=== PATIENT | male | born 1960 | race Caucasian/White ===

== ENCOUNTER 2019-11-18 08:42 | Outpatient (CLI) | payer BC, SELFPAY ==
--- NOTE | ~2019-11-18 | US_ITS ---
EXAMINATION: US abdomen limited EXAM DATE: 11/18/2019 09:15 INDICATION: Thrombocytopenia. TECHNIQUE: Multiple grayscale and Doppler images of the abdomen right upper quadrant were obtained (b y a technologist who performed the scan) and subsequently reviewed. Correlation is made to abdominal ultrasound 02/17/2013. FINDINGS: The pancreatic head and body are normal in appearance. The pancreatic tail is not visualized. The l iver has normal echogenicity and contour. There are no focal liver lesions identified. There is no evidence of intrahepatic biliary duct dilation. Portal venous flow was seen in the hepatopedal, nor mal direction and has normal Doppler waveform. No right-sided hydronephrosis. Common bile duct measures 5 mm, which is normal. The gallbladder fossa is unremarkable. Spleen measu res 11.3 cm, is morphologically normal. IMPRESSION: 1. Normal spleen size. Reviewed, dictated and finalized at location A. ARINE CHURN OPERATOR IMPRESSION: 1. Normal spleen size.
== END 2019-11-18 08:43 | disposition home or self-care (01) ==
LOC: CHSIMG 08:44
PROVIDERS: PCP Internal Medicine; Visit Provider Internal Medicine Hematology & Oncology
DX: D69.6 Thrombocytopenia, unspecified (principal)
CPT/HCPCS: 76705

== ENCOUNTER 2022-05-28 00:36 | Day surgery (SDC) | payer BC, SELFPAY ==
[2022-05-14 09:36] VITALS: BMI 21.5
--- NOTE | 2022-05-28 08:11 | P.PNAN_ITS ---
Anes - Initial Pre Proc Eval Procedure: Operation Date: 05/28/22 09:30 Proposed Procedures p Screening Colonoscopy - Malik Casey MD Date/Time: 05/28/22 08:11 Surgeon: Malik Casey MD Pre Op Diagnosis: hx of colon polyps Patient Data Age: 62 Gender: M Height: 1.85 m Weight: 74 kg Allergies Allergy/AdvReac Type Severity Reaction Status Date / Time meperidine Allergy Severe ITCHING;VOMITTING; Verified 05/28/22 08:41 TEMP RISES Home Medications Medication Instructions Recorded Confirmed Type atorvastatin 10 mg tablet 10 mg PO DAILY 05/14/22 05/14/22 History carvedilol 3.125 mg tablet 3.125 mg PO DAILY 05/14/22 05/14/22 History Patient hx anesthesia problems: none Family hx anesthesia problems: none Results Review: All pre-operative results and documents have been reviewed as part of the pre- operative evaluation. [facility] Past Medical History Medical History (Updated 05/28/22 @ 09:06 by Malik Casey MD) CAD (coronary artery disease) History of heart attack Hyperlipidemia Surgical History Surgical History (Updated 05/25/22 @ 14:43 by Marko Olivares DO) History of cholecystectomy Social History Social History Smoking status: Never smoker Alcohol intake: never Substance use: never Substance use type: does not use Living arrangements: with family Spiritual care concerns: No Anes - Eval Final PreProcedure Day of Procedure 05/28/22 08:11 Patient weight: normal Heart: regular rate and rhythm Lungs: clear to auscultation and normal air movement Airway: Mallampati scale class II Neurological: alert and oriented Last oral intake: >/= 8 hours ASA classification: III Emergent: no Anesthetic plan: proceed Anesthesia type and monitoring: general GIVS and standard monitoring Results Review: All pre-operative results and documents have been reviewed as part of the pre- operative evaluation. Informed Consent: The patient's anesthetic plan and its attendant risks and benefits were discussed with the patient/family/POA. Questions were solicited and answers provided to the satisfaction of the patient/family/POA.
[2022-05-28 08:42] VITALS: BP 127/70; PULSE 46; RESP 18; TEMP 36.4; O2SAT 100
[2022-05-28] MEDS: LACTATED RINGERS 1,000 ML 150 ML IV CONT (08:57)
--- NOTE | 2022-05-28 09:04 | PM.IMHP ---
H&P: HPI History of Present Illness Date/Time: 05/28/22 09:04 Chief Complaint: History of colon polyps Narrative: this is a 62-year-old white male patient presents for screening colonoscopy. Patient has a history of multiple colon polyps removed in 2012. Patient reports his current weight appetite and bowel movements are normal. He denies abdominal pain. He has had no bleeding. Family history noncontributory. Patient's past medical history is significant for atherosclerotic heart disease. He has a history of an SD. Review of Systems Review of Systems: review of systems noncontributory. [facility] [place] Past Medical History Medical History (Updated 05/28/22 @ 09:06 by Malik Casey MD) CAD (coronary artery disease) History of heart attack Hyperlipidemia Surgical History Surgical History (Updated 05/25/22 @ 14:43 by Marko Olivares DO) History of cholecystectomy Social History Social History Smoking status: Never smoker Alcohol intake: never Substance use: never Substance use type: does not use Living arrangements: with family Spiritual care concerns: No Meds Home Medications and Allergies Home Medications Medication Instructions Recorded Confirmed Type atorvastatin 10 mg tablet 10 mg PO DAILY 05/14/22 05/14/22 History carvedilol 3.125 mg tablet 3.125 mg PO DAILY 05/14/22 05/14/22 History Allergies Allergy/AdvReac Type Severity Reaction Status Date / Time meperidine Allergy Severe ITCHING;VOMITTING; Verified 05/28/22 08:41 TEMP RISES Vital Signs Vital Signs - 24 hr 05/28/22 08:42 Temperature 97.5 F L Pulse Rate 46 L Respiratory Rate 18 Blood Pressure 127/70 Pulse Oximetry 100 Oxygen Delivery Room Air Exam Narrative: Physical exam reveals patient to be alert. Vital signs stable. HEENT exam is unremarkable. Patient is anicteric. Lungs are clear to auscultation and percussion. Heart is without murmur or extra sounds. Abdominal exam bowel sounds are present soft nontender with no organomegaly. Digital external rectal exam is normal. Assessment and Plan Assessment and plan (1) History of colon polyps: Code(s): Z86.010 - Personal history of colonic polyps Status: Acute Assessment and Plan: Patient has a history of colon polyps. Plan is for surveillance colonoscopy now and consider this at 5 year intervals.
[2022-05-28 10:01] VITALS: BP 96/61; PULSE 54; RESP 16; O2SAT 97
[2022-05-28 10:11] VITALS: BP 99/61; PULSE 52; RESP 18; O2SAT 100
[2022-05-28 10:21] VITALS: BP 108/72; PULSE 50; RESP 18; O2SAT 99
== END 2022-05-28 10:25 | disposition home or self-care (01) ==
PROVIDERS: PCP Internal Medicine; Visit Provider Internal Medicine Gastroenterology
PROC: 0DJD8ZZ Inspection of Lower Intestinal Tract, Via Natural or Artificial Opening Endoscopic (ICD-10-PCS; CPT 45378; principal; 2022-05-28 09:30)
DX: Z12.11 Encounter for screening for malignant neoplasm of colon (principal); D12.3 Benign neoplasm of transverse colon; K64.8 Other hemorrhoids; I25.10 Atherosclerotic heart disease of native coronary artery without angina pectoris; I25.2 Old myocardial infarction; E78.5 Hyperlipidemia, unspecified; Z90.49 Acquired absence of other specified parts of digestive tract
CPT/HCPCS: 45385; 88305; J2704; J7120